=== PATIENT | female | born 1950 | race Caucasian/White ===

== ENCOUNTER → 2016-09-14 | Outpatient (CLI) | payer MEDICARE | END | disposition home or self-care (01) | LOC: CFH 13:04 | PROVIDERS: ATTEND Nurse Practitioner Family | DX: Z13.820 Encounter for screening for osteoporosis (principal); M81.0 Age-related osteoporosis without current pathological fracture; M85.9 Disorder of bone density and structure, unspecified; N95.1 Menopausal and female climacteric states | CPT/HCPCS: 77080 ==

== ENCOUNTER → 2017-12-14 | Outpatient (CLI) | payer MEDICARE | END | disposition home or self-care (01) | LOC: CFH 15:23 | PROVIDERS: ATTEND Nurse Practitioner Family | DX: R06.09 Other forms of dyspnea (principal); R06.02 Shortness of breath; Z99.81 Dependence on supplemental oxygen; I10 Essential (primary) hypertension; Z87.891 Personal history of nicotine dependence | CPT/HCPCS: 93306 ==

== ENCOUNTER 2018-10-03 10:10 | Outpatient (CLI) | payer MEDICARE | END 2018-10-03 23:59 | disposition home or self-care (01) | LOC: CFH 10:10 | PROVIDERS: ATTEND Internal Medicine | DX: M81.0 Age-related osteoporosis without current pathological fracture (principal); E11.9 Type 2 diabetes mellitus without complications; E78.2 Mixed hyperlipidemia; I10 Essential (primary) hypertension | CPT/HCPCS: 36415; 77080; 80061; 83036; 84439; 84443; 85025 ==

== ENCOUNTER → 2019-01-31 | Outpatient (CLI) | payer MEDICARE ==
[2019-01-31 16:18] LABS: BASOPHILS # (AUTO) 0.05 x10^3/uL (0-0.1); BASOPHILS % (AUTO) 1 % (0-1); EOSINOPHILS # (AUTO) 0.17 x10^3/uL (0-0.4); EOSINOPHILS % (AUTO) 2 % (1-7); LYMPHOCYTES # (AUTO) 1.32 x10^3/uL (1-3.4); LYMPHOCYTES % (AUTO) 13 % (22-44); MD NO; MEAN CORPUSCULAR HEMOGLOBIN 31.3 pg (27.0-34.8); MEAN CORPUSCULAR HGB CONC 33.4 g/dL (32.4-35.8); MEAN CORPUSCULAR VOLUME 93.8 fL (80-100); MEAN PLATELET VOLUME 8.4 fL (7.4-10.4); MONOCYTES # (AUTO) 0.53 x10^3/uL (0.2-0.8); MONOCYTES % (AUTO) 5 % (2-9); NEUTROPHILS % (AUTO) 80 % (42-75); PLATELET COUNT 340 x10^3/uL (130-400); RED BLOOD COUNT 4.24 x10^6/uL (3.82-5.3); RED CELL DISTRIBUTION WIDTH 13.9 % (9.6-15.2)
[2019-01-31 16:24] LABS: ALANINE AMINOTRANSFERASE 31 U/L (12-78); ALBUMIN 3.3 g/dL (3.4-5.0); ANION GAP 11 mmol/L (5-15); CALCIUM 9.2 mg/dL (8.5-10.1); CHLORIDE 96 mmol/L (98-107); CREATININE 1.02 mg/dL (0.55-1.02)
[2019-01-31 16:34] LABS: ALKALINE PHOSPHATASE 106 U/L (45-117); BILIRUBIN,TOTAL 0.4 mg/dL (0.2-1.0); TOTAL PROTEIN 7.5 g/dL (6.4-8.2)
== END | disposition home or self-care (01) ==
LOC: CFH 14:08
PROVIDERS: ATTEND Nurse Practitioner Family
DX: J44.9 Chronic obstructive pulmonary disease, unspecified (principal); J96.11 Chronic respiratory failure with hypoxia; I10 Essential (primary) hypertension; E03.9 Hypothyroidism, unspecified; E11.9 Type 2 diabetes mellitus without complications
CPT/HCPCS: 36415; 71046; 80053; 84443; 85025; 93306

== ENCOUNTER 2019-03-06 13:47 | Emergency (ER) | payer MEDICARE ==
[~2019-03-06] VITALS: Ht 162.6 cm; Wt 102.2 kg
--- NOTE | 2019-03-06 14:15 | NUR ---
Pt presents to ED from Sindi Nunes's office for c/o sob increased with exertion. Pt resting on gurney connected to skelp processor, NIBP cuff, and continous pulse ox monitor. Call light within reach and Bed rail up x 1. Spouse at bedside. EDMD at bedside.
[2019-03-06] MEDS ORDERED: methylPREDNISolone SOD SUCC 125 MG/2 ML IV ONE (14:30)
[2019-03-06] MEDS ORDERED: SODIUM CHLORIDE FLUSH 10ML SYR IVF ONE (14:30)
[2019-03-06] MEDS ORDERED: ALBUTEROL/IPRATROPIUM 2.5MG/0.5MG, 3 ML NPPB ONE (14:30)
[2019-03-06] MEDS ORDERED: ALBUTEROL/IPRATROPIUM 2.5MG/0.5MG, 3 ML ONE ×2 (14:32→17:26)
[2019-03-06] MEDS ORDERED: CALCIUM (14:33)
[2019-03-06] MEDS ORDERED: FLUO40CA2 PO (14:33)
[2019-03-06] MEDS ORDERED: PRIM50TA34 PO (14:33)
[2019-03-06] MEDS ORDERED: TRAM50TA2 PO (14:33)
[2019-03-06] MEDS ORDERED: DILT180C9 PO (14:33)
[2019-03-06] MEDS ORDERED: MONT10TA9 PO (14:33)
[2019-03-06] MEDS ORDERED: FLUT1DIS5 IH (14:33)
[2019-03-06] MEDS ORDERED: TIOT4MIS5 INH (14:33)
[2019-03-06] MEDS ORDERED: HYDR12.517 PO (14:33)
[2019-03-06] MEDS ORDERED: LEVO100T5 PO (14:33)
[2019-03-06] MEDS ORDERED: VITAMIN D (14:33)
[2019-03-06] MEDS ORDERED: ATOR10TA9 PO (14:33)
[2019-03-06] MEDS ORDERED: CARV12.52 PO (14:33)
[2019-03-06] MEDS ORDERED: azelastine (14:33)
[2019-03-06 14:57] LABS: BASOPHILS # (AUTO) 0.03 x10^3/uL (0-0.1); BASOPHILS % (AUTO) 0 % (0-1); EOSINOPHILS # (AUTO) 0.16 x10^3/uL (0-0.4); EOSINOPHILS % (AUTO) 2 % (1-7); LYMPHOCYTES # (AUTO) 1.15 x10^3/uL (1-3.4); LYMPHOCYTES % (AUTO) 12 % (22-44); MD NO; MEAN CORPUSCULAR HEMOGLOBIN 30.7 pg (27.0-34.8); MEAN CORPUSCULAR HGB CONC 32.8 g/dL (32.4-35.8); MEAN CORPUSCULAR VOLUME 93.7 fL (80-100); MONOCYTES % (AUTO) 8 % (2-9); NEUTROPHILS # (AUTO) 7.46 x10^3/uL (1.8-6.8); NEUTROPHILS % (AUTO) 78 % (42-75); PLATELET COUNT 356 x10^3/uL (130-400); RED BLOOD COUNT 4.07 x10^6/uL (3.82-5.3); RED CELL DISTRIBUTION WIDTH 14.6 % (9.6-15.2)
[2019-03-06 14:58] LABS: ALBUMIN 3.4 g/dL (3.4-5.0); ANION GAP 7 mmol/L (5-15); CALCIUM 9.1 mg/dL (8.5-10.1); CHLORIDE 99 mmol/L (98-107); CREATININE 0.71 mg/dL (0.55-1.02)
[2019-03-06] MEDS ORDERED: methylPREDNISolone SOD SUCC 125 MG/2 ML ONE (15:10)
--- NOTE | 2019-03-06 17:01 | NUR ---
Ambulated pt with 5L oxygen via NC with pulse ox monitor from room to restroom, approximately [address] Pt pulse ox was 75% on 5L NC when ambulating. Pt reports she "only walks about 10-15 feet at home before resting due to (sob)."
[2019-03-06 17:18] VITALS: BP 164/79
--- NOTE | 2019-03-06 17:19 | NUR ---
Pt states upon return to room after initial road test, "oh no I guess I only had my (personal oxygen device) oxygen on at 3L." EDMD notified. Second road test performed with ED portable oxygen tank. Pt ambulates on 4L oxygen via NC at 94%. EDMD notified.
[2019-03-06] MEDS ORDERED: ALBUTEROL SULFATE 2.5 MG/3 ML NPPB ONE (17:30)
--- NOTE | 2019-03-06 17:46 | NUR ---
Patient given discharge instructions and they have confirmed that they understand the instructions. Patient ambulatory with steady gait. Pt left with d/c paperwork, Rx, and all personal belongings. NADN. No needs expressed.
== END 2019-03-06 17:49 | disposition home or self-care (01) ==
LOC: ED 17:15
DX: J44.1 Chronic obstructive pulmonary disease with (acute) exacerbation (principal); I10 Essential (primary) hypertension; E11.9 Type 2 diabetes mellitus without complications; E03.9 Hypothyroidism, unspecified; E78.5 Hyperlipidemia, unspecified; Z87.891 Personal history of nicotine dependence
CPT/HCPCS: 36415; 71045; 80048; 82040; 83605; 85025; 93005; 94640; 96374; 99284; J2930; J7620

== ENCOUNTER → 2020-10-03 | Outpatient (CLI) | payer MEDICARE ==
[~2020-10-03] MED LIST: ATOR10TA9 PO; CALCIUM; CARV12.52 PO; DILT-86 PO; FLUO40CA2 PO; FLUT1DIS5 IH; HYDR12.517 PO; LEVO100T5 PO; MONT10TA17 PO; PRIM50TA34 PO; TIOT4MIS5 INH; TRAM50TA2 PO; VITAMIN D; azelastine
== END | disposition home or self-care (01) ==
LOC: CFH 10:48
PROVIDERS: ATTEND Internal Medicine
DX: M81.0 Age-related osteoporosis without current pathological fracture (principal)
CPT/HCPCS: 77080